=== PATIENT | male | born 1980 | race Caucasian/White ===

== ENCOUNTER 2020-12-03 16:48 | Outpatient (CLI) | payer OTHER ==
--- NOTE | 2020-12-03 17:24 | XRAY Report ---
PROCEDURE: Finger(s) LT INDICATIONS: SPRAIN OF L THUMB TECHNIQUE: AP hand, 2 views of the first finger(s) acquired. COMPARISON: None FINDINGS: Bones: No fractures or dislocations. No suspicious bony lesions. Mild first MCP joint osteoarthrit ic changes are seen. Soft tissues: No suspicious soft tissue calcifications. IMPRESSION: No acute left thumb fracture or dislocation. Mild first MCP joint osteoarthritis. Reviewed by: Scot Lovett MD on 12/03/2020 5:22 PM PDT Approved by: Scot Lovett MD on 12/03/2020 5:22 PM PDT Station ID: [id number]
== END 2020-12-03 23:59 | disposition home or self-care (01) ==
LOC: DI.N 16:48
PROVIDERS: ATTEND Physician Assistant Medical
DX: S63.6 Other and unspecified sprain of finger(s) (principal); M18.12 Unilateral primary osteoarthritis of first carpometacarpal joint, left hand

== ENCOUNTER 2021-01-24 09:17 | Outpatient (CLI) | payer OTHER ==
--- NOTE | 2021-01-24 12:20 | MRI Report ---
PROCEDURE: Hand LT W/O INDICATIONS: RT KNEE PAIN, RT KNEE JOINT DISORDERS, LEFT HAND O; left thumb pain. TECHNIQUE: Noncontrast axial PD fast spin echo and T2 fast spin echo with fat saturation; oblique coronal T1 spi n echo and T2 fast spin echo; and oblique sagittal T1 spin echo, T2 fast spin echo with fat saturatio n, and STIR through the thumb. COMPARISON: Left thumb radiographs 12/03/2020 FINDINGS: Image quality: Excellent. Bones: There is no acute trabecular bone injury. Mild volar subluxation of the first metacarpal phal angeal joint is seen. Cystic changes at the dorsal aspect of the first metatarsal head are most likel y degenerative. There is mild marginal spurring and joint space narrowing, consistent with at least m oderate degenerative changes. Mild degenerative changes are seen at the first metacarpophalangeal regulo nt with mild subchondral cystic changes in the trapezium. Soft tissues: The ulnar and radial collateral ligaments are intact. The volar plate is intact. Focal fluid signal is seen at the insertion of the extensor pollicis brevis onto the first proximal phalan geal base, which could indicate a chronic partial thickness or full-thickness tear. The visualized fl exor and extensor tendons are intact. The visualized musculature of the hand is normal in bulk. IMPRESSION: 1. Focal fluid signal at the insertion of the extensor pollicis brevis tendon onto the first proxima l phalangeal base is suspicious for at least partial chronic tearing. There is mild volar subluxation of the first metacarpophalangeal joint. 2. Moderate degenerative changes at the first metacarpophalangeal joint with joint space narrowing, marginal osteophyte formation, and subchondral cystic changes. Mild degenerative changes of the first carpometacarpal joint. Reviewed by: Reilly Ashton MD on 01/24/2021 12:19 PM PDT Approved by: Reilly Ashton MD on 01/24/2021 12:19 PM PDT Station ID: [id number]
--- NOTE | 2021-01-24 12:34 | MRI Report ---
PROCEDURE: Knee RT W/O INDICATIONS: RT KNEE PAIN, RT KNEE JOINT DISORDERS, LEFT HAND O TECHNIQUE: Noncontrast sagittal PD fast spin echo and T2 fast spin echo with fat saturation, sagittal 3-D gradie nt sequence with fat saturation; coronal T1 spin echo and PD fast spin echo with fat saturation, and axial PD fast spin echo with fat saturation through the knee. COMPARISON: None. FINDINGS: Menisci: Medial meniscus: Intact. Lateral meniscus: Intact. Cruciate ligaments: Anterior cruciate ligament: Intact. Posterior cruciate ligament: Intact. Medial structures: The medial collateral ligament appears intact. The semimembranosus tendon appears intact. Visualized portions of the pes anserinus tendons appear normal. No abnormal bursal fluid. Lateral structures: There is mild thickening and internal signal change of the proximal lateral collateral ligament, whic h is technically age indeterminate. Biceps femoris tendon appears intact. Iliotibial band within norm al limits. Popliteus tendon within normal limits. Anterior structures: Mild patellar tendinopathy, with prepatellar and superficial infrapatellar edema. The quadriceps tendon appears intact. Medial and lateral patellofemoral ligaments appear grossly intact. Patellar alignment is normal. Hoffa's fat pad unremarkable. Bones and cartilage: Bones: No bone marrow contusions or fractures. Medial compartment: No focal cartilage defect. Lateral compartment: Diffuse surface fraying and partial thickness loss of the central weightbearing tibial cartilage. Patellofemoral compartment: Diffuse patellar cartilage surface fraying. The femoral trochlear cartila ge demonstrates partial thickness loss overlying the medial aspect. Joint space: Trace joint effusion. No Taylor?s cyst. Presumed ganglion cyst seen within the posterior aspect of the intercondylar notch and adjacent to the tibial attachment of the PCL. No specific evidence of loose body identified. IMPRESSION: Mild joint degeneration involving the lateral and patellofemoral compartments. Trace joint effusion Mild patellar tendinopathy. Scattered ganglion cysts as above. Elsewhere, no internal derangement as above. Reviewed by: Rao Maxwell MD on 01/24/2021 12:33 PM PDT Approved by: Rao Maxwell MD on 01/24/2021 12:33 PM PDT Station ID: [id number]
== END 2021-01-24 09:18 | disposition home or self-care (01) ==
LOC: DI 09:17
PROVIDERS: ATTEND Orthopaedic Surgery
DX: M17.11 Unilateral primary osteoarthritis, right knee (principal); M67.461 Ganglion, right knee; M67.961 Unspecified disorder of synovium and tendon, right lower leg; M19.042 Primary osteoarthritis, left hand; M18.11 Unilateral primary osteoarthritis of first carpometacarpal joint, right hand; S63.111A Subluxation of metacarpophalangeal joint of right thumb, initial encounter

== ENCOUNTER 2021-03-14 11:16 | Outpatient (CLI) | payer OTHER ==
--- NOTE | 2021-03-14 15:03 | XRAY Report ---
PROCEDURE: Shoulder 3 View RT INDICATIONS: RIGHT SHOULDER PAIN TECHNIQUE: 4 views of the shoulder were acquired. COMPARISON: None. FINDINGS: No acute fracture seen. There is anatomic alignment. Scattered subchondral sclerosis and spurring. M ild cystic change at the posterior aspect of the greater tuberosity. IMPRESSION: Degenerative changes as above. If the patient's pain or other symptoms persist, consider further evaluation with MRI. Reviewed by: Rao Maxwell MD on 03/14/2021 3:01 PM PDT Approved by: Rao Maxwell MD on 03/14/2021 3:01 PM PDT Station ID: [id number]
== END 2021-03-14 11:17 | disposition home or self-care (01) ==
LOC: DI.N 11:16
PROVIDERS: ATTEND Physician Assistant
DX: M19.011 Primary osteoarthritis, right shoulder (principal)

== ENCOUNTER 2021-05-29 09:22 | Outpatient (CLI) | payer OTHER ==
[2021-05-29] MEDS ORDERED: lidocaine 1% 20 ML MDV ONE (09:34)
[2021-05-29] MEDS ORDERED: IOTHALAMATE MEGLUMINE 50 ML VIAL ONE (09:34)
[2021-05-29] MEDS ORDERED: GADOBUTROL 7.5 MMOL/7.5 ML VIAL ONE (09:35)
--- NOTE | 2021-05-29 12:04 | XRAY Report ---
PROCEDURE: Arthrogram Needle Placement INDICATIONS: RIGHT SHOULDER ROTATOR CUFF TEAR OR RUPTURE CONTRAST: CONTRAST: gadavist/conra FLUOROSCOPY TIME: FLUORO TIME: 0.2 min and NUMBER IMAGES: 2 TECHNIQUE: The indications, alternatives, benefits, risks, and complications of the procedure were explained to the patient. Written informed consent was obtained and placed in the chart. The shoulder was examin ed fluoroscopically and a site for needle placement chosen for entry into the glenohumeral joint from an anterior approach. The skin was prepped and draped in the usual fashion, and 1% lidocaine infilt rated from skin down to joint capsule. A spinal needle was inserted into the glenohumeral joint, and a small amount of iodinated contrast media injected to confirm intra-articular placement of the need le tip. This was followed by approximately 12 mL dilute solution of a gadolinium containing MR contr ast agent. The needle was removed and a dressing was applied. The patient was given postprocedural instructions and sent to the MR suite for MR imaging. FINDINGS: A single fluoroscopic spot image demonstrates intra-articular location of injected iodinated contrast . IMPRESSION: Successful fluoroscopically guided administration of dilute Gadolinium solution into the right should er joint for MR arthrogram. Reviewed by: Navi Ross MD on 05/29/2021 12:03 PM PST Approved by: Navi Ross MD on 05/29/2021 12:03 PM PST Station ID: [id number]
--- NOTE | 2021-05-29 12:31 | MRI Report ---
PROCEDURE: Arthrogram Shoulder RT INDICATIONS: RIGHT SHOULDER ROTATOR CUFF TEAR OR RUPTURE CONTRAST: Dilute gadolinium TECHNIQUE: After the administration of 12 mL of dilute intra-articular Gadolinium contrast, oblique coronal T1 a nd T2 spin echo with fat saturation, oblique sagittal T1 spin echo with and without fat saturation, o blique sagittal T2 fast spin echo with fat saturation, axial T1 spin echo with fat saturation through the shoulder. COMPARISON: None. Findings: Supraspinatus: Advanced tendinopathy with partial articular surface and interstitial tears. Infraspinatus: Moderate tendinopathy with partial articular surface and interstitial tears. Subscapularis: No evidence of tear. Teres minor: No evidence of tear. Labrum: Linear signal within the superior labrum, compatible with labral tear (501-15). Biceps tendon: No evidence of subluxation or tear. Acromioclavicular joint: Normal alignment. Muscle: Grade 1/2 supraspinatus atrophy. Bones: T2 hyperintense/T1 hypointense signal in the humeral head, which may reflect fibrocystic hernandes e. Miscellaneous: Evidence of synovitis with intra-articular body in the axillary recess, measuring up to 6.4 mm. No subacromial/subdeltoid bursal fluid. Intact coracoclavicular ligament. IMPRESSION: 1. Superior labral tear. 2. Grade 1/2 supraspinous atrophy. 3. Advanced supraspinatus and moderate infraspinatus tendinopathy with partial articular and intersti tial tears. Reviewed by: Jose M Pete MD on 05/29/2021 12:30 PM PST Approved by: Jose M Pete MD on 05/29/2021 12:30 PM PST Station ID: [id number]
[2021-05-29] MEDS: lidocaine 1% 20 ML MDV SUBQ ONE (13:13)
[2021-05-29] MEDS: IOTHALAMATE MEGLUMINE 50 ML VIAL IVP ONE (13:13)
[2021-05-29] MEDS: GADOBUTROL 7.5 MMOL/7.5 ML VIAL IVP ONE (13:14)
== END 2021-05-29 09:23 | disposition home or self-care (01) ==
LOC: DI 09:22
PROVIDERS: ATTEND Physician Assistant
DX: S43.431A Superior glenoid labrum lesion of right shoulder, initial encounter (principal); S46.811A Strain of other muscles, fascia and tendons at shoulder and upper arm level, right arm, initial encounter; M75.81 Other shoulder lesions, right shoulder
CPT/HCPCS: 23350; 73222; 77002; A9585; Q9961

== ENCOUNTER 2021-06-16 21:21 | Emergency (ER) | payer OTHER ==
--- NOTE | 2021-06-16 21:25 | ED Physician Documentation ---
PD HPI UPPER EXT INJURY - Stated complaint Stated Complaint: L FINGER PX - History obtained from History obtained from: Patient - History of Present Illness Location: Left, Finger (end of index finger left hand, crushed by the seat portion of his [place] falling abruptly onto his finger when he adjusted it. Blood under the nail and pain with movement.) Type of injury: Blunt / blow Where injury occurred: Home Timing - onset: How many hours ago (1), Today Timing - details: Abrupt onset, Still present Worsened by: Moving, Palpating Associated symptoms: Swelling. No: Weakness, Numbness Review of Systems Skin: denies: Abrasion (s), Laceration (s) Neurologic: denies: Numbness PD PAST MEDICAL HISTORY - Past Medical History Cardiovascular: None Respiratory: None - Present Medications Home Medications: Ambulatory Orders Medication Instructions Recorded Confirmed Celecoxib [CeleBREX] 06/16/21 HYDROcod/ACETAM 5/325 [Harris 5/325] 1 ea PO Q6H PRN #12 tablet 06/16/21 - Allergies Allergies/Adverse Reactions: Allergies Allergy/AdvReac Type Severity Reaction Status Date / Time No Known Drug Allergies Allergy Verified 06/16/21 21:41 PD ED PE NORMAL - Vitals Vital signs reviewed: Yes - General General: Alert and oriented X 3, Well developed/nourished - Derm Derm: Normal color, Warm and dry - Extremities Extremities: Other (left index finger tender distal and around nailbed and DIP. Subungual hematoma noted proximal half of nailbed. Tender locally. No gross laxity at DIP joint but limited by tender. Proximal part of finger not tender. Able to flex/extend at DIP and PIP. ) - Neuro Neuro: No motor deficit, No sensory deficit Results - Vitals Vitals: Vital Signs - 24 hr 06/16/21 21:34 Temperature 35.9 C L Heart Rate 88 Respiratory 16 Rate Blood Pressure 151/91 H O2 Saturation 100 Oxygen O2 Source Room air - Rads (name of study) left index finger Radiology: Prelim report reviewed (no fractures), EMP read contemporaneously (there is small saeid of bone lateral DIP joint concerning for small avulsion fx. ), See rad report PD MEDICAL DECISION MAKING - ED course Complexity details: reviewed results (possible avulsion fx at DIP, so will treat for possible ligament disruption at IP. ), considered differential (subungula hematoma of proximal half of nail. I offered to decompress it with cautery but he declined. ), d/w patient Departure - Departure Disposition: 01 Home, Self Care Clinical Impression: Crush injury to finger Qualifiers: Encounter type: initial encounter Qualified Code(s): S67.10XA - Crushing injury of unspecified finger(s), initial encounter Subungual hematoma of digit of hand Qualifiers: Encounter type: initial encounter Qualified Code(s): S60.10XA - Contusion of unspecified finger with damage to nail, initial encounter Avulsion fracture of distal phalanx of finger Qualifiers: Encounter type: initial encounter Fracture type: closed Qualified Code(s): S62.639A - Displaced fracture of distal phalanx of unspecified finger, initial encounter for closed fracture Condition: Stable Record reviewed to determine appropriate education?: Yes Instructions: ED Sprain Finger Follow-Up: [facility] Sam Scruggs [Provider Group] Prescriptions: HYDROcod/ACETAM 5/325 [Harris 5/325] 1 ea PO Q6H PRN #12 tablet PRN Reason: Pain Comments: The blood under the nail should absorb up over several days and decrease any pressure there. If the feels that there is increased pressure and pain in the nailbed, you can return or follow-up as we can make a small hole in the nail to decompress it. Otherwise generally the swelling and injury of the finger from being crushed will decrease over several days. Ice elevate and rested often to help reduce it sooner. Use your Celebrex at home is regular. To that add Tylenol every 4-6 hours if needed for pain or add hydrocodone if needed for worse pain. This should be needed really just the first few days. I transmitted further script for meds to [facility] if needed. On x-ray there does appear to be a minimal avulsion fracture at the corner of the finger bone. Even though this is technically a fracture, it more represents an injury to the ligament attachment at the corner. You need to splint and protect motion of the finger over the next 1 to 2 weeks to allow early healing of this. Follow-up with your primary care in about 7 to 10 days for reevaluation and see if you can move to a more full activity with the finger. You can have the splint off at times for cleaning and just resting the finger but have a splinted the wrist for the time to remind you not to do much with that. Discharge Date/Time: 06/16/21 22:35
[2021-06-16 21:35] VITALS: BP 151/91
[2021-06-16] MEDS ORDERED: IBUPROFEN 600 MG TABLET PO STA (21:56)
[2021-06-16] MEDS ORDERED: HYDROcod/ACET 5/325 Prepack 4 PO STA (21:57)
--- NOTE | 2021-06-16 22:29 | XRAY Report ---
PROCEDURE: Finger(s) LT INDICATIONS: crush injury index finger TECHNIQUE: AP hand, 2 views of the left index finger(s) acquired. COMPARISON: FINDINGS: Bones: No fractures or dislocations. No suspicious bony lesions. Soft tissues: No suspicious soft tissue calcifications. IMPRESSION: No acute fracture of the left index finger. Reviewed by: Abel Watson on 06/16/2021 10:28 PM [facility] Approved by: Abel Watson on 06/16/2021 10:28 PM [facility] Station ID: [id number]
== END 2021-06-16 22:35 | disposition home or self-care (01) ==
LOC: ED 21:21
DX: S67.191A Crushing injury of left index finger, initial encounter (principal); S62.631A Displaced fracture of distal phalanx of left index finger, initial encounter for closed fracture; S60.122A Contusion of left index finger with damage to nail, initial encounter; W23.0XXA Caught, crushed, jammed, or pinched between moving objects, initial encounter; Y93.89 Activity, other specified; Y92.009 Unspecified place in unspecified non-institutional (private) residence as the place of occurrence of the external cause
CPT/HCPCS: 73140; 99283; A9270